=== PATIENT | male | born 1995 | race Caucasian/White ===

== ENCOUNTER 2023-01-12 11:22 | Emergency (ER) | payer OTHER ==
[~2023-01-12] VITALS: Ht 167.6 cm; Wt 100.0 kg
[2023-01-12 12:09] VITALS: BP 137/98; PULSE 85; RESP 16; TEMP 98.4; O2SAT 98
== END 2023-01-12 14:30 | disposition left against medical advice (07) ==
LOC: ER 14:22
DX: Z53.21 Procedure and treatment not carried out due to patient leaving prior to being seen by health care provider (principal)
CPT/HCPCS: 99281